=== PATIENT | male | born 1955 | race Caucasian/White ===

== ENCOUNTER 2017-08-17 11:39 | Day surgery (SDC) | payer OTHER ==
[2017-04-27 21:23] VITALS: BMI 20.5
[2017-08-17 13:07] VITALS: TEMP 98.6
[2017-08-17] MEDS ORDERED: Lactated Ringer's 1,000 ML IV ONE (13:25)
[2017-08-17] MEDS ORDERED: Midazolam 2 MG/2 ML VIAL ONE (13:43)
[2017-08-17] MEDS ORDERED: Propofol 10 mg/ml Inj (20 ML) ONE (13:44)
[2017-08-17 16:12] VITALS: BP 146/82; PULSE 67; RESP 16; O2SAT 99
== END 2017-08-17 15:50 | disposition home or self-care (01) ==
LOC: C.ENDO 11:39
PROVIDERS: ATTEND Internal Medicine
DX: R19.5 Other fecal abnormalities (principal); K29.70 Gastritis, unspecified, without bleeding; K29.80 Duodenitis without bleeding; B96.81 Helicobacter pylori [H. pylori] as the cause of diseases classified elsewhere; D64.9 Anemia, unspecified; K57.30 Diverticulosis of large intestine without perforation or abscess without bleeding; K64.8 Other hemorrhoids; K62.1 Rectal polyp; K63.5 Polyp of colon
CPT/HCPCS: 43239; 45380; 82948; 88305; 88313; 88342; J2250; J2704; J3010; J7120